=== PATIENT | female | born 1955 | race African-American/Black ===

== ENCOUNTER → 2017-03-25 | Outpatient (CLI) | payer OTHER ==
[~2017-03-25] MED LIST: AMITRIPTYLINE H75 M1; ASPIRIN EC81 M1 PO; AZITHROMYCIN 2250 MG; BACTROBAN CREAM30 G1 TOP; CALTRATE 600 +1 EACH PO; CARISOPRODOL 3350 MG PO; CLEOCIN HCL150 MG PO; COUGH RELI15 MG/5 ML PO; COZAAR100 MG PO; DOXYCYCLINE 10100 MG PO; ERGOCALCIF50000 UNIT PO; FISH OIL 1,0001 EAC5 PO; GLIPIZIDE 10 MG10 MG; GLUCOPHAGE XR500 MG PO; HYDROCHLOROTHIA25 M1 PO; IBUPROFEN 600600 M1 PO; LIPITOR10 MG PO; MACROBID 100 M100 M1 PO; MICARDIS40 MG PO; NAPROSYN500 MG PO; NORCO 5-325 TA1 EACH PO; NORVASC10 MG PO; PREDNISONE 20 M20 MG PO; PROAIR HFA8.5 GM; TRAMADOL 50 MG50 MG PO; TRIAMCINOLONE10 G1 MC; ZOLOFT 50 MG TA50 M1 PO; ZOLOFT100 MG PO; ZPAK PO
== END ==
LOC: HYPER 03-12 13:52
DX: E11.622 Type 2 diabetes mellitus with other skin ulcer (principal); L97.821 Non-pressure chronic ulcer of other part of left lower leg limited to breakdown of skin; L97.811 Non-pressure chronic ulcer of other part of right lower leg limited to breakdown of skin; E11.36 Type 2 diabetes mellitus with diabetic cataract; I10 Essential (primary) hypertension; K21.9 Gastro-esophageal reflux disease without esophagitis; L43.8 Other lichen planus; J44.9 Chronic obstructive pulmonary disease, unspecified; G47.30 Sleep apnea, unspecified; F32.9 Major depressive disorder, single episode, unspecified; F17.210 Nicotine dependence, cigarettes, uncomplicated; Z86.718 Personal history of other venous thrombosis and embolism

== ENCOUNTER → 2017-04-01 | Outpatient (CLI) | payer OTHER | LOC: HYPER 06:37 | DX: E11.622 Type 2 diabetes mellitus with other skin ulcer (principal); L97.811 Non-pressure chronic ulcer of other part of right lower leg limited to breakdown of skin; E11.628 Type 2 diabetes mellitus with other skin complications; L43.8 Other lichen planus; F17.210 Nicotine dependence, cigarettes, uncomplicated; F32.9 Major depressive disorder, single episode, unspecified; I10 Essential (primary) hypertension; E11.36 Type 2 diabetes mellitus with diabetic cataract; J44.9 Chronic obstructive pulmonary disease, unspecified; K21.9 Gastro-esophageal reflux disease without esophagitis; Z86.718 Personal history of other venous thrombosis and embolism ==

== ENCOUNTER 2018-02-09 17:19 | Emergency (ER) | payer OTHER ==
[~2018-02-09] VITALS: Ht 167.6 cm; Wt 83.0 kg
[2018-02-09 18:46] VITALS: BP 172/85
== END 2018-02-09 18:50 | disposition home or self-care (01) ==
LOC: ER 17:19
DX: L43.9 Lichen planus, unspecified (principal); I10 Essential (primary) hypertension; E11.9 Type 2 diabetes mellitus without complications; F32.9 Major depressive disorder, single episode, unspecified; G47.30 Sleep apnea, unspecified; F17.210 Nicotine dependence, cigarettes, uncomplicated; Z88.5 Allergy status to narcotic agent; Z88.8 Allergy status to other drugs, medicaments and biological substances